=== PATIENT | female | born 1995 | race Native Hawaiian/Other Pacific Islander ===

== ENCOUNTER 2020-09-24 22:46 | Emergency (ER) | payer OTHER ==
[~2020-09-24] VITALS: Ht 172.7 cm; Wt 94.3 kg
[~2020-09-24 22:46] MED LIST: MUCINEX600 MG OR; MULTIVITAMI1 OR
[2020-09-25 01:31] VITALS: BP 125/78; TEMP 98.4
== END 2020-09-25 01:31 | disposition home or self-care (01) ==
LOC: ED 22:46
DX: J20.9 Acute bronchitis, unspecified (principal); S91.311A Laceration without foreign body, right foot, initial encounter; Z03.818 Encounter for observation for suspected exposure to other biological agents ruled out; F17.210 Nicotine dependence, cigarettes, uncomplicated; W45.8XXA Other foreign body or object entering through skin, initial encounter; Y92.89 Other specified places as the place of occurrence of the external cause
CPT/HCPCS: 81025; 87635; 99283; U0003

== ENCOUNTER 2020-10-08 18:28 | Emergency (ER) | payer OTHER ==
[~2020-10-08] VITALS: Ht 172.7 cm; Wt 94.3 kg
[2020-10-08 19:52] VITALS: BP 121/88; TEMP 98.3
== END 2020-10-08 19:52 | disposition home or self-care (01) ==
LOC: ED 18:28
DX: S43.492A Other sprain of left shoulder joint, initial encounter (principal); S53.492A Other sprain of left elbow, initial encounter; S63.592A Other specified sprain of left wrist, initial encounter; W18.39XA Other fall on same level, initial encounter; Y92.89 Other specified places as the place of occurrence of the external cause
CPT/HCPCS: 96372; 99283; J1885

== ENCOUNTER 2020-10-27 18:48 | Emergency (ER) | payer OTHER ==
[~2020-10-27] VITALS: Ht 172.7 cm; Wt 94.3 kg
[2020-10-27 22:03] VITALS: BP 102/58; TEMP 98.7
== END 2020-10-27 22:24 | disposition home or self-care (01) ==
LOC: ED 18:48
DX: N39.0 Urinary tract infection, site not specified (principal)
CPT/HCPCS: 81000; 81025; 99283

== ENCOUNTER 2021-01-19 10:50 | Emergency (ER) | payer OTHER ==
[~2021-01-19] VITALS: Ht 172.7 cm; Wt 96.6 kg
[2021-01-19 10:58] VITALS: BP 115/76; TEMP 98.9
== END 2021-01-19 12:17 | disposition home or self-care (01) ==
LOC: ED 10:50
DX: N39.0 Urinary tract infection, site not specified (principal)
CPT/HCPCS: 81000; 81025; 87077; 87086; 87088; 87186; 99283

== ENCOUNTER 2021-05-02 08:34 | Emergency (ER) | payer OTHER | END 2021-05-02 10:07 | disposition home or self-care (01) | LOC: ED 08:34 | DX: H92.02 Otalgia, left ear (principal) | CPT/HCPCS: 99281 ==

== ENCOUNTER 2021-05-14 00:52 | Emergency (ER) | payer OTHER | END 2021-05-14 01:41 | disposition home or self-care (01) | LOC: ED 00:52 | DX: J06.9 Acute upper respiratory infection, unspecified (principal) | CPT/HCPCS: 99282 ==

== ENCOUNTER 2021-07-24 15:22 | Emergency (ER) | payer OTHER ==
[~2021-07-24] VITALS: Ht 172.7 cm; Wt 96.6 kg
[2021-07-24 17:00] VITALS: BP 130/84; TEMP 98
== END 2021-07-24 17:11 | disposition home or self-care (01) ==
LOC: ED 15:22
PROC: 2W3RX1Z Immobilization of Left Lower Leg using Splint (ICD-10-PCS; principal; 2021-07-24)
DX: S93.492A Sprain of other ligament of left ankle, initial encounter (principal); W17.2XXA Fall into hole, initial encounter; Y92.89 Other specified places as the place of occurrence of the external cause
CPT/HCPCS: 99282

== ENCOUNTER 2022-01-18 20:18 | Emergency (ER) | payer OTHER ==
[~2022-01-18] VITALS: Ht 172.7 cm; Wt 94.8 kg
[2022-01-18 21:30] VITALS: BP 117/75; TEMP 98.8
== END 2022-01-18 21:30 | disposition home or self-care (01) ==
LOC: ED 20:18
DX: J20.9 Acute bronchitis, unspecified (principal)
CPT/HCPCS: 99282

== ENCOUNTER 2022-06-16 01:54 | Emergency (ER) | payer OTHER ==
[~2022-06-16] VITALS: Ht 172.7 cm; Wt 94.8 kg
[2022-06-16 03:40] VITALS: BP 110/74; TEMP 98.2
== END 2022-06-16 03:40 | disposition home or self-care (01) ==
LOC: ED 01:54
DX: R06.02 Shortness of breath (principal); R07.89 Other chest pain; R04.2 Hemoptysis; Z20.822 Contact with and (suspected) exposure to COVID-19
CPT/HCPCS: 87635; 93005; 99283; U0003

== ENCOUNTER 2022-08-02 19:51 | Emergency (ER) | payer OTHER ==
[~2022-08-02] VITALS: Ht 172.7 cm; Wt 95.3 kg
[2022-08-02 22:13] VITALS: BP 110/62; TEMP 98
== END 2022-08-02 22:13 | disposition home or self-care (01) ==
LOC: ED 19:51
DX: S60.221A Contusion of right hand, initial encounter (principal); W22.8XXA Striking against or struck by other objects, initial encounter; Y92.89 Other specified places as the place of occurrence of the external cause
CPT/HCPCS: 99283

== ENCOUNTER 2022-10-19 23:03 | Emergency (ER) | payer OTHER ==
[~2022-10-19] VITALS: Ht 172.7 cm; Wt 95.3 kg
[2022-10-19 23:03] VITALS: TEMP 98
[2022-10-20 00:25] VITALS: BP 135/78
== END 2022-10-20 00:25 | disposition home or self-care (01) ==
LOC: ED 23:03
DX: F41.8 Other specified anxiety disorders (principal); K02.9 Dental caries, unspecified
CPT/HCPCS: 96372; 99283; J2920

== ENCOUNTER 2022-11-19 17:30 | Emergency (ER) | payer OTHER ==
[~2022-11-19] VITALS: Ht 172.7 cm; Wt 97.5 kg
[2022-11-19 17:37] VITALS: BP 115/83; TEMP 97.2
== END 2022-11-19 18:08 | disposition home or self-care (01) ==
LOC: ED 17:30
DX: H10.022 Other mucopurulent conjunctivitis, left eye (principal)
CPT/HCPCS: 99282

== ENCOUNTER 2022-11-27 22:18 | Emergency (ER) | payer OTHER ==
[~2022-11-27] VITALS: Ht 172.7 cm; Wt 97.5 kg
[2022-11-27 22:25] VITALS: BP 113/78; TEMP 98.4
== END 2022-11-28 01:15 | disposition home or self-care (01) ==
LOC: ED 22:18
DX: J02.9 Acute pharyngitis, unspecified (principal); J32.8 Other chronic sinusitis; Z20.822 Contact with and (suspected) exposure to COVID-19
CPT/HCPCS: 87502; 87635; 87651; 99282; U0003

== ENCOUNTER 2023-01-24 04:40 | Emergency (ER) | payer OTHER ==
[~2023-01-24] VITALS: Ht 172.7 cm; Wt 99.8 kg
[2023-01-24 04:40] VITALS: TEMP 97.6
[2023-01-24 06:40] VITALS: BP 114/86
== END 2023-01-24 06:40 | disposition home or self-care (01) ==
LOC: ED 04:40
DX: N39.0 Urinary tract infection, site not specified (principal)
CPT/HCPCS: 81000; 87086; 87088; 96372; 99282; J1885

== ENCOUNTER 2023-02-17 03:40 | Emergency (ER) | payer OTHER ==
[~2023-02-17] VITALS: Ht 172.7 cm; Wt 95.3 kg
[2023-02-17 03:49] VITALS: TEMP 98.2
[2023-02-17 05:20] VITALS: BP 120/78
== END 2023-02-17 05:20 | disposition home or self-care (01) ==
LOC: ED 03:40
DX: H65.192 Other acute nonsuppurative otitis media, left ear (principal)
CPT/HCPCS: 87502; 87651; 96372; 99283; J1885

== ENCOUNTER 2023-02-20 18:54 | Emergency (ER) | payer OTHER ==
[~2023-02-20] VITALS: Ht 172.7 cm; Wt 90.7 kg
[2023-02-20 19:00] VITALS: TEMP 98
[2023-02-20 21:00] VITALS: BP 106/77
== END 2023-02-20 21:00 | disposition home or self-care (01) ==
LOC: ED 18:54
DX: S93.492A Sprain of other ligament of left ankle, initial encounter (principal); X50.1XXA Overexertion from prolonged static or awkward postures, initial encounter; Y92.096 Garden or yard of other non-institutional residence as the place of occurrence of the external cause
CPT/HCPCS: 99282

== ENCOUNTER 2023-02-23 21:10 | Emergency (ER) | payer OTHER ==
[~2023-02-23] VITALS: Ht 172.7 cm; Wt 90.7 kg
[2023-02-23 21:25] VITALS: BP 114/86; TEMP 97.4
== END 2023-02-23 22:04 | disposition home or self-care (01) ==
LOC: ED 21:10
DX: K02.9 Dental caries, unspecified (principal)
CPT/HCPCS: 99282

== ENCOUNTER 2023-03-18 22:57 | Emergency (ER) | payer OTHER ==
[~2023-03-18] VITALS: Ht 172.7 cm; Wt 97.5 kg
[2023-03-18 23:07] VITALS: BP 111/80; TEMP 98.9
== END 2023-03-19 00:33 | disposition home or self-care (01) ==
LOC: ED 22:57
DX: M54.50 Low back pain, unspecified (principal)
CPT/HCPCS: 96372; 99283; J1885; J2360

== ENCOUNTER 2023-05-27 12:14 | Emergency (ER) | payer OTHER ==
[~2023-05-27] VITALS: Ht 172.7 cm; Wt 90.7 kg
[2023-05-27 12:25] VITALS: BP 121/75; TEMP 98.4
== END 2023-05-27 12:41 | disposition home or self-care (01) ==
LOC: ED 12:14
DX: S41.151A Open bite of right upper arm, initial encounter (principal); S41.131A Puncture wound without foreign body of right upper arm, initial encounter; W54.0XXA Bitten by dog, initial encounter
CPT/HCPCS: 81025; 90715; 99282

== ENCOUNTER 2023-05-31 08:48 | Emergency (ER) | payer OTHER ==
[~2023-05-31] VITALS: Ht 172.7 cm; Wt 97.5 kg
[2023-05-31 09:10] VITALS: BP 119/75; TEMP 98.6
== END 2023-05-31 09:10 | disposition home or self-care (01) ==
LOC: ED 08:48
DX: J06.9 Acute upper respiratory infection, unspecified (principal); B34.9 Viral infection, unspecified
CPT/HCPCS: 99281

== ENCOUNTER 2023-06-16 08:31 | Emergency (ER) | payer OTHER ==
[~2023-06-16] VITALS: Ht 172.7 cm; Wt 97.5 kg
[2023-06-16 08:31] VITALS: BP 106/68; TEMP 97.2
== END 2023-06-16 09:17 | disposition home or self-care (01) ==
LOC: ED 08:31
DX: R30.0 Dysuria (principal); N89.8 Other specified noninflammatory disorders of vagina
CPT/HCPCS: 81002; 81025; 99283

== ENCOUNTER 2023-07-27 03:44 | Emergency (ER) | payer OTHER ==
[~2023-07-27] VITALS: Ht 172.7 cm; Wt 99.8 kg
[2023-07-27 03:50] VITALS: TEMP 97.2
[2023-07-27 05:40] VITALS: BP 102/70
== END 2023-07-27 05:40 | disposition home or self-care (01) ==
LOC: ED 03:44
DX: M54.16 Radiculopathy, lumbar region (principal)
CPT/HCPCS: 80307; 81000; 96372; 99283; J1885; J2405

== ENCOUNTER 2023-12-27 20:39 | Emergency (ER) | payer BC ==
[~2023-12-27] VITALS: Ht 172.7 cm; Wt 101.6 kg
[2023-12-27 20:45] VITALS: BP 128/71; TEMP 98
== END 2023-12-27 23:02 | disposition home or self-care (01) ==
LOC: ED 20:39
DX: R30.0 Dysuria (principal); Z72.51 High risk heterosexual behavior
CPT/HCPCS: 81000; 81025; 87490; 87590; 99282; 99283

== ENCOUNTER 2023-12-31 21:40 | Emergency (ER) | payer BC ==
[~2023-12-31] VITALS: Ht 172.7 cm; Wt 103.0 kg
[2023-12-31 21:45] VITALS: TEMP 97.7
[2023-12-31] MEDS ORDERED: DEXAMETHASONE SODIUM PHOSPHATE 4 MG INJ IM ONE (22:21)
[2023-12-31] MEDS ORDERED: TORADOL 60MG/2ML INJ IM ONE ×2 (22:21→22:24)
[2023-12-31] MEDS ORDERED: DEXAMETHASONE SODIUM PHOSPHATE 4 MG INJ ONE (22:24)
[2023-12-31 23:00] VITALS: BP 110/65
== END 2023-12-31 23:00 | disposition home or self-care (01) ==
LOC: ED 21:40
DX: M25.561 Pain in right knee (principal); S83.91XA Sprain of unspecified site of right knee, initial encounter; W18.30XA Fall on same level, unspecified, initial encounter; Y93.89 Activity, other specified; Y92.89 Other specified places as the place of occurrence of the external cause
CPT/HCPCS: 96372; 99283; J1100; J1885